=== PATIENT | female | born 1990 | race Caucasian/White ===

== ENCOUNTER 2023-11-13 05:37 | Inpatient (IN) ==
[2023-11-13] MEDS ORDERED: Buffered Lidocaine 1% SYRIN 1 ml INTRADERM ONE (06:04)
[2023-11-13] MEDS ORDERED: Lactated Ringers 1000 ml BAG 1,000 ML IV ONE (06:04)
[2023-11-13] MEDS ORDERED: Sodium Citrate/Citric Acid LIQ 15 ML UDC PO ONE (06:04)
[2023-11-13] MEDS ORDERED: ceFOXitin 2 GM IVPREMIX 2 GM/50 ML BAG IVPB ONE (06:04)
[2023-11-13 06:18] LABS: ABS Basophils 0.1 10^3/uL (0.0-0.1); ABS Eosinophils 0.1 10^3/uL (0.0-0.5); ABS Monocytes 1.1 10^3/uL (0.0-0.9); ABS Neutrophils 11.7 10^3/uL (1.5-7.6); ABS Nucleated RBC 0.01 10^3/ul; Eosinophil % 0.7 %; Hematocrit 40.2 % (35-45); Hemoglobin 13.7 g/dL (11.5-14.3); Lymphocyte % 18.7 %; Mean Corpuscular Hemoglobin 31.3 pg (27-33); Mean Corpuscular Volume 92.2 fL (80-97); Mean Platelet Volume 8.2 fL (7.5-11.2); Platelet Count 314 10^3/uL (150-450); Red Blood Count 4.36 10^6/uL (3.63-4.92); Red Cell Distribution Width 12.8 % (12-17)
[2023-11-13] MEDS ORDERED: Lactated Ringers 1000 ml BAG 1,000 ML IV SCH ×2 (07:00→11:00)
[2023-11-13] MEDS ORDERED: fentaNYL 100 mcg/2 ml 50 MCG/ML VIAL ONE (07:16)
[2023-11-13] MEDS ORDERED: Morphine PF AMP (0.5MG/ML) 5 MG/10 ML AMP ONE (07:16)
[2023-11-13] MEDS ORDERED: Oxytocin 10 UNITS/ML 1 ML VIAL ONE (07:18)
[2023-11-13] MEDS ORDERED: Ondansetron 4 mg VIAL 2 MG/ML 2 ml VIAL ONE (07:18)
[2023-11-13] MEDS ORDERED: Phenylephrine IV 10 MG/ML 1 ml VIAL ONE (07:18)
[2023-11-13] MEDS ORDERED: Acetaminophen IV 1 GM/100ML 1,000 MG/100 ML BAG IV ONE (09:05)
[2023-11-13] MEDS ORDERED: Dexamethasone IV 4 MG/ML VIAL 1 ml VIAL ONE (09:05)
[2023-11-13] MEDS: Oxytocin in LR 20,000 MILLI.UNIT/1,000 ML BAG IV SCH ×3 (09:16→13:26)
[2023-11-13] MEDS ORDERED: Acetaminophen IV 1 GM/100ML 1,000 MG/100 ML BAG IV PRN (09:22)
[2023-11-13] MEDS ORDERED: Naloxone 0.4 mg VIAL 0.4 mg/ml 1 ml VIAL IV PUSH PRN (09:22)
[2023-11-13] MEDS ORDERED: Metoclopramide 5 MG/ML VIAL (10 mg) IV PRN (09:22)
[2023-11-13] MEDS ORDERED: Ondansetron 4 mg VIAL 2 MG/ML 2 ml VIAL IV PRN (09:22)
[2023-11-13 09:57] LABS: Urine Appearance Clear; Urine Benzodiazepine Screen None Detected (None Detect); Urine Bilirubin Negative (Negative); Urine Blood 3+ (Negative); Urine Cannabinoids Screen None Detected (None Detect); Urine Color Straw; Urine Glucose Negative (Negative); Urine Ketones Negative (Negative); Urine Nitrite Negative (Negative); Urine Opiates Screen None Detected (None Detect); Urine Protein Negative (Negative); Urine Specific Gravity 1.003 (1.002-1.030); Urine Urobilinogen Negative (Negative)
[2023-11-13 10:00] LABS: Urine Bacteria Absent (Absent); Urine Red Blood Cell 3+(>10/hpf) (Absent); Urine Squamous Epithelial Cell Present (Absent); Urine White Blood Cell Trace(0-5/hpf) (Absent)
[2023-11-13] MEDS ORDERED: Dibucaine 1% OINT 28.35 GM TUBE PR PRN (10:09)
[2023-11-13] MEDS ORDERED: Witch Hazel PAD JAR TOPICAL PRN (10:09)
[2023-11-13] MEDS ORDERED: Glycerin ADULT 2.4 gm SUPP PR PRN (10:09)
[2023-11-13] MEDS ORDERED: RHO D Immune Globulin (HUMAN) 300 MCG = 1,500 I.U. INJ IM ONE (10:11)
[2023-11-14 08:50] LABS: ABS Eosinophils 0.1 10^3/uL (0.0-0.5); ABS Lymphocytes 2.7 10^3/uL (1.0-4.8); ABS Monocytes 0.9 10^3/uL (0.0-0.9); ABS Neutrophils 12.8 10^3/uL (1.5-7.6); ABS Nucleated RBC 0.01 10^3/ul; Eosinophil % 0.5 %; Hematocrit 34.3 % (35-45); Hemoglobin 11.5 g/dL (11.5-14.3); Lymphocyte % 16.3 %; Mean Corpuscular Hemoglobin 31.2 pg (27-33); Mean Corpuscular Hgb Conc 33.5 g/dL (31-36); Mean Corpuscular Volume 93.2 fL (80-97); Mean Platelet Volume 8.2 fL (7.5-11.2); Nucleated Red Blood Cells % 0.1 %/100WBC (0.0-0.8); Platelet Count 267 10^3/uL (150-450); Red Blood Count 3.68 10^6/uL (3.63-4.92); White Blood Count 16.5 10^3/uL (3.8-11.8)
[2023-11-15 09:20] VITALS: BP 125/68
== END 2023-11-15 14:00 | disposition home or self-care (01) | DRG 788 ==
LOC: MCHOB 05:37
PROVIDERS: ADMIT Obstetrics & Gynecology; ATTEND Obstetrics & Gynecology